=== PATIENT | male | born 1970 | race Caucasian/White ===

== ENCOUNTER 2018-06-19 07:51 | Inpatient (IN) | payer MEDICAID, OTHER ==
[2018-06-19 10:16] LABS: AADO2 Venous 64.5 mmHg; MODE ROOM AIR; MetHgb Venous 0.4 %; Sample Type Blood venous; Site OTHER; Venous COHb 0.1 %; Venous Fraction OxyHgb 70.7 %; Venous Oxygen Sat 71.1 mmHG (55.0-75.0); Venous Total Hemglobin 11.1 g/dl
[2018-06-19 10:22] LABS: ADD MAN DIFF? NO
[2018-06-19] MEDS: SOD CHLORIDE 0.9% 750 ML IV (10:24)
[2018-06-19 10:29] LABS: ABNORMAL IP MESSAGE 1; BASOPHIL # 0.1 10^3/ul (0.0-0.1); BASOPHILS % 0.3 % (0.0-2.0); HEMATOCRIT 27.4 % (42.0-52.0); HEMOGLOBIN 9.8 g/dl (14.0-18.0); LYMPHOCYTES % 4.4 % (15.0-51.0); MEAN CORPUSCULAR HEMOGLOBIN 29.2 pg (29.0-33.0); MEAN CORPUSCULAR HGB CONC 35.8 g/dl (32.0-37.0); MEAN CORPUSCULAR VOLUME 81.5 fl (82.0-101.0); MEAN PLATELET VOLUME 9.8 fl (7.4-10.4); MONOCYTE # 1.3 10^3/ul (0.3-0.9); MONOCYTES % 5.8 % (0.0-11.0); NEUTROPHIL # 20.5 10^3/ul (1.6-7.5); NEUTROPHILS % 88.8 % (39.0-77.0); PLATELET COUNT 266 10^3/UL (140-415); POSITIVE DIFF @See below; RED BLOOD COUNT 3.36 10^6/ul (4.70-6.10); RED CELL DISTRIBUTION WIDTH 12.5 % (11.5-14.5)
[2018-06-19 10:49] LABS: ANION GAP 21 (5-13); BLOOD UREA NITROGEN 63 mg/dl (7-20); CALCIUM 8.4 mg/dl (8.4-10.2); CARBON DIOXIDE 17 mmol/L (21-31); CHLORIDE 79 mmol/L (97-110); CREATININE 3.78 mg/dl (0.61-1.24); Estimated GFR 17 mL/min (>60); MAGNESIUM 2.4 mg/dl (1.7-2.5); PHOSPHORUS 5.4 mg/dl (2.5-4.9); POTASSIUM 4.2 mmol/L (3.5-5.1)
[2018-06-19 10:53] LABS: ANISOCYTOSIS 1+ (0-0); BAND NEUTROPHILS #M 4.6 10^3/ul (0.0-0.6); BAND NEUTROPHILS % (M) 20 % (0-4); LYMPHOCYTES #M 1.1 10^3/ul (0.8-2.9); LYMPHOCYTES % (M) 5 % (15-51); MONOCYTE #M 1.3 10^3/ul (0.3-0.9); MONOCYTES % (M) 6 % (0-11); PLATELET ESTIMATE NORMAL; POIKILOCYTOSIS 1+ (0-0); POLYCHROMASIA 1+ (0-0); SEG NEUT #M 16.9 10^3/ul (1.6-7.5); SEGMENTED NEUTROPHILS (M) % 69 % (39-77); SMUDGE%M 2 % (0-0); SODIUM 117 mmol/L (135-144)
[2018-06-19 10:59] LABS: ADD UMIC YES; UR ASCORBIC ACID NEGATIVE (NEGATIVE); UR BACTERIA FEW /HPF (NONE SEEN); UR BILIRUBIN (Dip) NEGATIVE (NEGATIVE); UR BLOOD (Dip) 3+ mg/dL (NEGATIVE); UR BUDDING YEAST FEW /HPF (NONE SEEN); UR CLARITY SLIGHTLY CLOUDY (CLEAR); UR COLOR YELLOW (YELLOW); UR GLUCOSE (Dip) 3+ mg/dL (NEGATIVE); UR KETONES (Dip) NEGATIVE (NEGATIVE); UR LEUKOCYTE ESTERASE (Dip) TRACE Leu/ul (NEGATIVE); UR NITRITE (Dip) NEGATIVE (NEGATIVE); UR RBC 10 /HPF (0-5); UR SPECIFIC GRAVITY (Dip) 1.014 (1.003-1.030); UR TOTAL PROTEIN (Dip) NEGATIVE (NEGATIVE); UR UROBILINOGEN (Dip) NEGATIVE (NEGATIVE); UR WBC 31 /HPF (0-5)
[2018-06-19 11:00] LABS: TROPONIN-I < 0.012 ng/ml (0.000-0.120)
[2018-06-19 11:02] LABS: GLUCOSE 675 mg/dl (70-220)
[2018-06-19] MEDS: SODIUM CHLORIDE 0.9% 1L BAG IV* (12:03)
[2018-06-19] MEDS: INSULIN REGULAR, HUMAN 100 UNIT/1 ML 3ML VIAL SC ×2 (12:03→18:42)
[2018-06-19] MEDS: CEFTRIAXONE 1 GM/50 ML (PMX) 50 ML IVPB (12:05)
[2018-06-19] MEDS ORDERED: NACL 0.9% 3 ML SYG IV (13:00)
[2018-06-19] MEDS: SOD CHLORIDE 0.9% 1,000 ML IV ×4 (13:15→21:58)
[2018-06-19 13:27] LABS: ALBUMIN 3.5 g/dl (3.3-4.9); ANION GAP 21 (5-13); BLOOD UREA NITROGEN 64 mg/dl (7-20); CALCIUM 8.2 mg/dl (8.4-10.2); CARBON DIOXIDE 18 mmol/L (21-31); CHLORIDE 79 mmol/L (97-110); CREATININE 3.59 mg/dl (0.61-1.24); PHOSPHORUS 5.3 mg/dl (2.5-4.9); POTASSIUM 4.3 mmol/L (3.5-5.1)
[2018-06-19 13:37] LABS: SODIUM 118 mmol/L (135-144)
[2018-06-19 13:46] LABS: GLUCOSE 666 mg/dl (70-220)
[2018-06-19] MEDS: FAMOTIDINE 20 MG TAB PO (14:34)
[2018-06-19] MEDS ORDERED: GLUCAGON 1 MG INJ IM (18:00)
[2018-06-19] MEDS ORDERED: DEXTROSE 50% 50 ML SYRINGE IV ×2 (18:00)
[2018-06-19] MEDS ORDERED: GLUCOSE GEL 15 GRAM TUBE BUCCAL (18:00)
[2018-06-19] MEDS ORDERED: GLUCOSE GEL 15 GRAM TUBE PO ×2 (18:00)
[2018-06-19 18:27] LABS: LACTIC ACID 1.5 mmol/L (0.5-2.0)
[2018-06-19] MEDS ORDERED: PENDING SANTYL ORDER FOR WOUND CARE XX (18:30)
[2018-06-19] MEDS: ACETAMINOPHEN 325 MG TAB PO (18:37)
[2018-06-19] MEDS: INSULIN ASPART [NOVOLOG] 3 ML PEN SC ×2 (18:42→22:09)
[2018-06-19] MEDS: ALBUMIN HUMAN 25% 100 ML IV ×2 (20:22→21:37)
[2018-06-19] MEDS ORDERED: NORepinephrine 8MG/250 ML (PMX 250 ML IV (21:00)
[2018-06-19] MEDS: CEFEPIME 1GM/50 ML (PMX) 50 ML IV (21:26)
[2018-06-19] MEDS: HEPARIN 5,000 UNIT/1 ML VIAL SC (21:56)
[2018-06-19 22:10] LABS: LACTIC ACID 1.2 mmol/L (0.5-2.0)
[2018-06-19] MEDS: INSULIN GLARGINE [LANTus] (100 UNITS/ML) SYG SC (22:10)
[2018-06-19] MEDS: NORepinephrine 8MG/250 ML (PMX 250 ML IV (23:15)
[2018-06-20 06:02] LABS: ABNORMAL IP MESSAGE 1; HEMATOCRIT 27.7 % (42.0-52.0); HEMOGLOBIN 9.5 g/dl (14.0-18.0); MEAN CORPUSCULAR HEMOGLOBIN 28.6 pg (29.0-33.0); MEAN CORPUSCULAR HGB CONC 34.3 g/dl (32.0-37.0); MEAN CORPUSCULAR VOLUME 83.4 fl (82.0-101.0); PLATELET COUNT 278 10^3/UL (140-415); POSITIVE DIFF @See below; RED BLOOD COUNT 3.32 10^6/ul (4.70-6.10); RED CELL DISTRIBUTION WIDTH 12.9 % (11.5-14.5)
[2018-06-20 06:02] LABS: WHITE BLOOD COUNT 27.2 10^3/ul (4.8-10.8)
[2018-06-20 06:14] LABS: ADD MAN DIFF? YES
[2018-06-20 06:20] LABS: IRON 12 ug/dl (35-150)
[2018-06-20 06:27] LABS: ALANINE AMINOTRANSFERASE 19 IU/L (13-69); ALBUMIN 3.4 g/dl (3.3-4.9); ALBUMIN/GLOBULIN RATIO 0.97; ALKALINE PHOSPHATASE 256 IU/L (42-121); ANION GAP 19 (5-13); ASPARTATE AMINO TRANSFERASE 42 IU/L (15-46); BILIRUBIN,INDIRECT 0.1 mg/dl (0-1.1); BILIRUBIN,TOTAL 0.1 mg/dl (0.2-1.3); BLOOD UREA NITROGEN 46 mg/dl (7-20); CALCIUM 7.8 mg/dl (8.4-10.2); CARBON DIOXIDE 13 mmol/L (21-31); CHLORIDE 103 mmol/L (97-110); CREATININE 2.69 mg/dl (0.61-1.24); Estimated GFR 26 mL/min (>60); GLUCOSE 304 mg/dl (70-220); MAGNESIUM 2.3 mg/dl (1.7-2.5); POTASSIUM 3.3 mmol/L (3.5-5.1); SODIUM 135 mmol/L (135-144); TOTAL PROTEIN 6.9 g/dl (6.1-8.1)
[2018-06-20 06:29] LABS: % IRON SATURATION 5 % SAT (22-52); TOTAL IRON BINDING CAPACITY 246 ug/dl (241-421)
[2018-06-20] MEDS: SOD CHLORIDE 0.9% 1,000 ML IV ×2 (06:41→20:07)
[2018-06-20] MEDS ORDERED: DEXTROSE 50% 50 ML SYRINGE IV ×2 (07:00)
[2018-06-20] MEDS: ACCU-CHEK XX ×17 (07:00→23:14)
[2018-06-20 08:20] LABS: BAND NEUTROPHILS #M 2.4 10^3/ul (0.0-0.6); BAND NEUTROPHILS % (M) 9 % (0-4); BURR CELLS 1+ (0-0); LYMPHOCYTES #M 1.6 10^3/ul (0.8-2.9); LYMPHOCYTES % (M) 6 % (15-51); MONOCYTE #M 1.6 10^3/ul (0.3-0.9); MONOCYTES % (M) 6 % (0-11); PLATELET ESTIMATE NORMAL; POIKILOCYTOSIS 1+ (0-0); SEG NEUT #M 22.1 10^3/ul (1.6-7.5); SEGMENTED NEUTROPHILS (M) % 79 % (39-77); SMUDGE%M 3 % (0-0)
[2018-06-20] MEDS ORDERED: POTASSIUM CHLORIDE 100 ML IVPB (09:00)
[2018-06-20] MEDS: FAMOTIDINE 20 MG TAB PO (09:06)
[2018-06-20] MEDS: ONDANSETRON 4 MG INJ IV (09:06)
[2018-06-20] MEDS: POTASSIUM CHLORIDE 100 ML IVPB ×2 (09:10→13:03)
[2018-06-20] MEDS: HEPARIN 5,000 UNIT/1 ML VIAL SC ×2 (09:13→20:21)
[2018-06-20] MEDS: INSULIN HUMAN REGULAR 100 UNIT in SOD CHLORIDE 0.9% 99 ML IV (09:17)
[2018-06-20] MEDS: NYSTATIN 15 GM OINT TOP ×3 (10:18→20:07)
[2018-06-20] MEDS: SOD FERRIC GLUC COMPLX 125 MG in SOD CHLORIDE 0.9% 100 ML IVPB (13:04)
[2018-06-20] MEDS: LIDOCAINE 1% (MPF) 5 ML VIAL SC (14:44)
[2018-06-20] MEDS: CEFEPIME 1GM/50 ML (PMX) 50 ML IV (20:06)
[2018-06-21] MEDS: ACCU-CHEK XX ×17 (01:17→15:34)
[2018-06-21 04:48] LABS: ADD MAN DIFF? NO
[2018-06-21 04:52] LABS: WHITE BLOOD COUNT 17.4 10^3/ul (4.8-10.8)
[2018-06-21 04:52] LABS: ABNORMAL IP MESSAGE 1; BASOPHIL # 0.1 10^3/ul (0.0-0.1); BASOPHILS % 0.3 % (0.0-2.0); EOSINOPHILS % 0.2 % (0.0-7.0); HEMATOCRIT 21.3 % (42.0-52.0); HEMOGLOBIN 7.5 g/dl (14.0-18.0); LYMPHOCYTES # 1.1 10^3/ul (0.8-2.9); LYMPHOCYTES % 6.2 % (15.0-51.0); MEAN CORPUSCULAR HEMOGLOBIN 29.1 pg (29.0-33.0); MEAN CORPUSCULAR HGB CONC 35.2 g/dl (32.0-37.0); MEAN CORPUSCULAR VOLUME 82.6 fl (82.0-101.0); MEAN PLATELET VOLUME 10.1 fl (7.4-10.4); MONOCYTE # 1.6 10^3/ul (0.3-0.9); MONOCYTES % 9.3 % (0.0-11.0); NEUTROPHIL # 14.5 10^3/ul (1.6-7.5); PLATELET COUNT 240 10^3/UL (140-415); POSITIVE DIFF @See below; RED BLOOD COUNT 2.58 10^6/ul (4.70-6.10); RED CELL DISTRIBUTION WIDTH 13.3 % (11.5-14.5)
[2018-06-21 05:18] LABS: ALANINE AMINOTRANSFERASE 33 IU/L (13-69); ALBUMIN 2.9 g/dl (3.3-4.9); ALBUMIN/GLOBULIN RATIO 0.87; ALKALINE PHOSPHATASE 449 IU/L (42-121); ANION GAP 11 (5-13); ASPARTATE AMINO TRANSFERASE 55 IU/L (15-46); BILIRUBIN,INDIRECT 0.2 mg/dl (0-1.1); BILIRUBIN,TOTAL 0.2 mg/dl (0.2-1.3); BLOOD UREA NITROGEN 29 mg/dl (7-20); CALCIUM 7.9 mg/dl (8.4-10.2); CARBON DIOXIDE 18 mmol/L (21-31); CHLORIDE 108 mmol/L (97-110); CREATININE 1.76 mg/dl (0.61-1.24); Estimated GFR 42 mL/min (>60); GLUCOSE 112 mg/dl (70-220); MAGNESIUM 2.3 mg/dl (1.7-2.5); SODIUM 137 mmol/L (135-144); TOTAL PROTEIN 6.2 g/dl (6.1-8.1)
[2018-06-21] MEDS: SOD CHLORIDE 0.9% 1,000 ML IV ×2 (06:43→18:32)
[2018-06-21] MEDS: NYSTATIN 15 GM OINT TOP ×3 (08:16→21:07)
[2018-06-21] MEDS: FAMOTIDINE 20 MG TAB PO (08:16)
[2018-06-21] MEDS: HEPARIN 5,000 UNIT/1 ML VIAL SC ×2 (08:20→21:06)
[2018-06-21] MEDS: POTASSIUM CHLORIDE 100 ML IVPB ×2 (09:39→11:26)
[2018-06-21] MEDS: POTASSIUM CHLORIDE (SR) 20 MEQ TAB PO (09:39)
[2018-06-21] MEDS: DICYCLOMINE 10 MG CAP PO (09:48)
[2018-06-21] MEDS: LOPERAMIDE 2 MG CAP PO (09:48)
[2018-06-21] MEDS: INSULIN GLARGINE [LANTus] (100 UNITS/ML) SYG SC (11:30)
[2018-06-21] MEDS: LACTOBACILLUS RHAMNOSUS CAP PO ×2 (11:30→17:21)
[2018-06-21] MEDS: INSULIN ASPART [NOVOLOG] 3 ML PEN SC ×3 (11:30→21:00)
[2018-06-21 13:17] LABS: HEMATOCRIT 23.2 % (42.0-52.0); HEMOGLOBIN 8.1 g/dl (14.0-18.0)
[2018-06-21] MEDS: SOD FERRIC GLUC COMPLX 125 MG in SOD CHLORIDE 0.9% 100 ML IVPB (13:42)
[2018-06-21] MEDS ORDERED: NYSTATIN 15 GM CR TOP (21:00)
[2018-06-21] MEDS: CEFEPIME 1GM/50 ML (PMX) 50 ML IV ×2 (21:00→23:44)
[2018-06-22 05:37] LABS: ADD MAN DIFF? NO
[2018-06-22 05:49] LABS: ABNORMAL IP MESSAGE 1; BASOPHIL # 0.1 10^3/ul (0.0-0.1); BASOPHILS % 0.4 % (0.0-2.0); EOSINOPHILS # 0.1 10^3/ul (0.0-0.5); EOSINOPHILS % 1.2 % (0.0-7.0); HEMATOCRIT 23.6 % (42.0-52.0); HEMOGLOBIN 8.2 g/dl (14.0-18.0); LYMPHOCYTES # 1.3 10^3/ul (0.8-2.9); LYMPHOCYTES % 10.6 % (15.0-51.0); MEAN CORPUSCULAR HEMOGLOBIN 28.6 pg (29.0-33.0); MEAN CORPUSCULAR HGB CONC 34.7 g/dl (32.0-37.0); MEAN CORPUSCULAR VOLUME 82.2 fl (82.0-101.0); MEAN PLATELET VOLUME 9.8 fl (7.4-10.4); MONOCYTE # 1.7 10^3/ul (0.3-0.9); NEUTROPHIL # 8.7 10^3/ul (1.6-7.5); NEUTROPHILS % 72.7 % (39.0-77.0); PLATELET COUNT 278 10^3/UL (140-415); POSITIVE DIFF @See below; RED BLOOD COUNT 2.87 10^6/ul (4.70-6.10); RED CELL DISTRIBUTION WIDTH 13.9 % (11.5-14.5)
[2018-06-22 05:49] LABS: WHITE BLOOD COUNT 11.9 10^3/ul (4.8-10.8)
[2018-06-22] MEDS: SOD CHLORIDE 0.9% 1,000 ML IV ×2 (06:10→13:46)
[2018-06-22 06:24] LABS: MAGNESIUM 2.1 mg/dl (1.7-2.5)
[2018-06-22 07:18] LABS: ALANINE AMINOTRANSFERASE 30 IU/L (13-69); ALBUMIN 2.7 g/dl (3.3-4.9); ALBUMIN/GLOBULIN RATIO 0.87; ALKALINE PHOSPHATASE 462 IU/L (42-121); ANION GAP 8 (5-13); ASPARTATE AMINO TRANSFERASE 38 IU/L (15-46); BILIRUBIN,INDIRECT 0.3 mg/dl (0-1.1); BILIRUBIN,TOTAL 0.3 mg/dl (0.2-1.3); BLOOD UREA NITROGEN 20 mg/dl (7-20); CALCIUM 8.2 mg/dl (8.4-10.2); CARBON DIOXIDE 19 mmol/L (21-31); CHLORIDE 110 mmol/L (97-110); CREATININE 1.52 mg/dl (0.61-1.24); Estimated GFR 49 mL/min (>60); GLUCOSE 135 mg/dl (70-220); POTASSIUM 3.3 mmol/L (3.5-5.1); SODIUM 137 mmol/L (135-144); TOTAL PROTEIN 5.8 g/dl (6.1-8.1)
[2018-06-22] MEDS: INSULIN ASPART [NOVOLOG] 3 ML PEN SC ×4 (07:50→20:42)
[2018-06-22] MEDS: FAMOTIDINE 20 MG TAB PO (08:31)
[2018-06-22] MEDS: LACTOBACILLUS RHAMNOSUS CAP PO ×3 (08:31→17:35)
[2018-06-22] MEDS: FERROUS SULFATE (EC) 325 MG TAB PO (08:31)
[2018-06-22] MEDS: HEPARIN 5,000 UNIT/1 ML VIAL SC ×2 (08:31→20:41)
[2018-06-22] MEDS: NYSTATIN 15 GM OINT TOP ×3 (08:32→20:37)
[2018-06-22] MEDS: INSULIN GLARGINE [LANTus] (100 UNITS/ML) SYG SC (08:32)
[2018-06-22] MEDS: POTASSIUM CHLORIDE 20 MEQ POWDER FOR ORAL SOLN PO (11:08)
[2018-06-22] MEDS ORDERED: GLUCOSE GEL 15 GRAM TUBE PO ×2 (13:30)
[2018-06-22] MEDS ORDERED: DEXTROSE 50% 50 ML SYRINGE IV ×2 (13:30)
[2018-06-22] MEDS ORDERED: GLUCAGON 1 MG INJ IM (13:30)
[2018-06-22] MEDS ORDERED: GLUCOSE GEL 15 GRAM TUBE BUCCAL (13:30)
[2018-06-22] MEDS: SOD FERRIC GLUC COMPLX 125 MG in SOD CHLORIDE 0.9% 100 ML IVPB (13:46)
[2018-06-22] MEDS: CEFTRIAXONE 1 GM/50 ML (PMX) 50 ML IVPB (15:27)
[2018-06-22] MEDS: FLUCONAZOLE 200 MG TAB PO (17:35)
[2018-06-23] MEDS: SOD CHLORIDE 0.9% 1,000 ML IV (01:28)
[2018-06-23 05:14] LABS: ADD MAN DIFF? NO
[2018-06-23 05:15] LABS: BASOPHILS % 0.4 % (0.0-2.0); EOSINOPHILS # 0.3 10^3/ul (0.0-0.5); EOSINOPHILS % 2.5 % (0.0-7.0); HEMATOCRIT 21.2 % (42.0-52.0); HEMOGLOBIN 7.2 g/dl (14.0-18.0); LYMPHOCYTES # 1.2 10^3/ul (0.8-2.9); LYMPHOCYTES % 11.6 % (15.0-51.0); MEAN CORPUSCULAR HEMOGLOBIN 28.5 pg (29.0-33.0); MEAN CORPUSCULAR VOLUME 83.8 fl (82.0-101.0); MEAN PLATELET VOLUME 9.4 fl (7.4-10.4); MONOCYTE # 1.4 10^3/ul (0.3-0.9); MONOCYTES % 13.8 % (0.0-11.0); NEUTROPHILS % 70.4 % (39.0-77.0); PLATELET COUNT 273 10^3/UL (140-415); RED BLOOD COUNT 2.53 10^6/ul (4.70-6.10); RED CELL DISTRIBUTION WIDTH 14.7 % (11.5-14.5)
[2018-06-23 05:41] LABS: ALANINE AMINOTRANSFERASE 28 IU/L (13-69); ALBUMIN 2.4 g/dl (3.3-4.9); ALKALINE PHOSPHATASE 372 IU/L (42-121); ANION GAP 7 (5-13); ASPARTATE AMINO TRANSFERASE 22 IU/L (15-46); BILIRUBIN,INDIRECT 0.2 mg/dl (0-1.1); BILIRUBIN,TOTAL 0.2 mg/dl (0.2-1.3); BLOOD UREA NITROGEN 15 mg/dl (7-20); CALCIUM 7.2 mg/dl (8.4-10.2); CARBON DIOXIDE 18 mmol/L (21-31); CHLORIDE 113 mmol/L (97-110); CREATININE 1.09 mg/dl (0.61-1.24); Estimated GFR > 60 mL/min (>60); GLUCOSE 68 mg/dl (70-220); POTASSIUM 3.1 mmol/L (3.5-5.1); SODIUM 138 mmol/L (135-144); TOTAL PROTEIN 5.4 g/dl (6.1-8.1)
[2018-06-23 05:47] LABS: MAGNESIUM 1.6 mg/dl (1.7-2.5)
[2018-06-23] MEDS: INSULIN ASPART [NOVOLOG] 3 ML PEN SC ×4 (07:50→21:06)
[2018-06-23] MEDS: ACETAMINOPHEN 325 MG TAB PO (07:59)
[2018-06-23] MEDS: LACTOBACILLUS RHAMNOSUS CAP PO ×3 (07:59→18:23)
[2018-06-23] MEDS: FERROUS SULFATE (EC) 325 MG TAB PO (09:20)
[2018-06-23] MEDS: FAMOTIDINE 20 MG TAB PO (09:20)
[2018-06-23] MEDS: HEPARIN 5,000 UNIT/1 ML VIAL SC ×2 (09:23→21:07)
[2018-06-23] MEDS: NYSTATIN 15 GM OINT TOP ×3 (09:24→21:07)
[2018-06-23] MEDS: SOD FERRIC GLUC COMPLX 125 MG in SOD CHLORIDE 0.9% 100 ML IVPB (13:51)
[2018-06-23] MEDS ORDERED: LOPERAMIDE 2 MG CAP PO (15:00)
[2018-06-23] MEDS: POTASSIUM CHLORIDE 20 MEQ POWDER FOR ORAL SOLN PO (15:00)
[2018-06-23] MEDS: AMOXICILLIN 500 MG CAP PO ×2 (15:14→22:47)
[2018-06-23] MEDS: INSULIN GLARGINE [LANTus] (100 UNITS/ML) SYG SC (15:23)
[2018-06-23] MEDS: MAGNESIUM SULFATE 2 GM/50 ML 50 ML IVPB (15:40)
[2018-06-24 06:04] LABS: ADD MAN DIFF? NO
[2018-06-24 06:10] LABS: WHITE BLOOD COUNT 10.7 10^3/ul (4.8-10.8)
[2018-06-24 06:10] LABS: BASOPHILS % 0.4 % (0.0-2.0); EOSINOPHILS # 0.4 10^3/ul (0.0-0.5); EOSINOPHILS % 3.4 % (0.0-7.0); HEMATOCRIT 25.5 % (42.0-52.0); HEMOGLOBIN 8.5 g/dl (14.0-18.0); LYMPHOCYTES # 1.1 10^3/ul (0.8-2.9); LYMPHOCYTES % 10.4 % (15.0-51.0); MEAN CORPUSCULAR HEMOGLOBIN 28.2 pg (29.0-33.0); MEAN CORPUSCULAR HGB CONC 33.3 g/dl (32.0-37.0); MEAN CORPUSCULAR VOLUME 84.7 fl (82.0-101.0); MEAN PLATELET VOLUME 9.7 fl (7.4-10.4); MONOCYTE # 1.1 10^3/ul (0.3-0.9); MONOCYTES % 10.3 % (0.0-11.0); NEUTROPHIL # 7.9 10^3/ul (1.6-7.5); NEUTROPHILS % 73.7 % (39.0-77.0); PLATELET COUNT 423 10^3/UL (140-415); RED BLOOD COUNT 3.01 10^6/ul (4.70-6.10); RED CELL DISTRIBUTION WIDTH 14.6 % (11.5-14.5)
[2018-06-24] MEDS: AMOXICILLIN 500 MG CAP PO ×3 (06:16→21:27)
[2018-06-24 06:42] LABS: ANION GAP 9 (5-13); BLOOD UREA NITROGEN 15 mg/dl (7-20); CALCIUM 8.6 mg/dl (8.4-10.2); CARBON DIOXIDE 22 mmol/L (21-31); CHLORIDE 107 mmol/L (97-110); CREATININE 1.25 mg/dl (0.61-1.24); Estimated GFR > 60 mL/min (>60); GLUCOSE 265 mg/dl (70-220); MAGNESIUM 2.2 mg/dl (1.7-2.5); PHOSPHORUS 2.4 mg/dl (2.5-4.9); POTASSIUM 4.1 mmol/L (3.5-5.1); SODIUM 138 mmol/L (135-144)
[2018-06-24] MEDS ORDERED: INSULIN GLARGINE [LANTus] (100 UNITS/ML) SYG SC (08:00)
[2018-06-24] MEDS: INSULIN ASPART [NOVOLOG] 3 ML PEN SC ×4 (09:12→21:20)
[2018-06-24] MEDS: HEPARIN 5,000 UNIT/1 ML VIAL SC ×2 (09:13→21:26)
[2018-06-24] MEDS: FAMOTIDINE 20 MG TAB PO (09:21)
[2018-06-24] MEDS: LACTOBACILLUS RHAMNOSUS CAP PO ×3 (09:21→17:54)
[2018-06-24] MEDS: FERROUS SULFATE (EC) 325 MG TAB PO (09:21)
[2018-06-24] MEDS: NYSTATIN 15 GM OINT TOP ×3 (09:22→21:28)
[2018-06-24] MEDS: INSULIN GLARGINE [LANTus] (100 UNITS/ML) SYG SC (09:40)
[2018-06-24] MEDS: SOD CHLORIDE 0.9% 1,000 ML IV (11:00)
[2018-06-24] MEDS: SOD FERRIC GLUC COMPLX 125 MG in SOD CHLORIDE 0.9% 100 ML IVPB (13:13)
[2018-06-25] MEDS: SOD CHLORIDE 0.9% 1,000 ML IV (00:35)
[2018-06-25 05:40] LABS: ADD MAN DIFF? NO
[2018-06-25 05:47] LABS: WHITE BLOOD COUNT 11.7 10^3/ul (4.8-10.8)
[2018-06-25 05:47] LABS: BASOPHIL # 0.1 10^3/ul (0.0-0.1); BASOPHILS % 0.5 % (0.0-2.0); EOSINOPHILS # 0.4 10^3/ul (0.0-0.5); EOSINOPHILS % 3.4 % (0.0-7.0); HEMATOCRIT 24.8 % (42.0-52.0); HEMOGLOBIN 8.2 g/dl (14.0-18.0); LYMPHOCYTES # 1.3 10^3/ul (0.8-2.9); LYMPHOCYTES % 11.4 % (15.0-51.0); MEAN CORPUSCULAR HEMOGLOBIN 28.6 pg (29.0-33.0); MEAN CORPUSCULAR HGB CONC 33.1 g/dl (32.0-37.0); MEAN CORPUSCULAR VOLUME 86.4 fl (82.0-101.0); MEAN PLATELET VOLUME 9.5 fl (7.4-10.4); MONOCYTE # 1.1 10^3/ul (0.3-0.9); MONOCYTES % 9.7 % (0.0-11.0); NEUTROPHIL # 8.6 10^3/ul (1.6-7.5); NEUTROPHILS % 73.4 % (39.0-77.0); PLATELET COUNT 498 10^3/UL (140-415); RED BLOOD COUNT 2.87 10^6/ul (4.70-6.10); RED CELL DISTRIBUTION WIDTH 14.2 % (11.5-14.5)
[2018-06-25] MEDS: AMOXICILLIN 500 MG CAP PO ×2 (06:06→13:59)
[2018-06-25 06:12] LABS: ANION GAP 8 (5-13); BLOOD UREA NITROGEN 15 mg/dl (7-20); CALCIUM 8.6 mg/dl (8.4-10.2); CARBON DIOXIDE 24 mmol/L (21-31); CHLORIDE 105 mmol/L (97-110); CREATININE 1.14 mg/dl (0.61-1.24); Estimated GFR > 60 mL/min (>60); GLUCOSE 164 mg/dl (70-220); MAGNESIUM 1.9 mg/dl (1.7-2.5); PHOSPHORUS 3.2 mg/dl (2.5-4.9); POTASSIUM 3.6 mmol/L (3.5-5.1); SODIUM 137 mmol/L (135-144)
[2018-06-25] MEDS: INSULIN ASPART [NOVOLOG] 3 ML PEN SC ×2 (09:02→13:16)
[2018-06-25] MEDS: FAMOTIDINE 20 MG TAB PO (09:03)
[2018-06-25] MEDS: LACTOBACILLUS RHAMNOSUS CAP PO ×2 (09:03→13:14)
[2018-06-25] MEDS: FERROUS SULFATE (EC) 325 MG TAB PO (09:03)
[2018-06-25] MEDS: INSULIN GLARGINE [LANTus] (100 UNITS/ML) SYG SC (09:08)
[2018-06-25] MEDS: HEPARIN 5,000 UNIT/1 ML VIAL SC (09:09)
[2018-06-25] MEDS: NYSTATIN 15 GM OINT TOP ×2 (10:28→13:18)
== END 2018-06-25 16:10 | disposition home or self-care (01) | DRG 871 ==
LOC: MS1 06-21 18:28 → E/R 07:51 → TEL 11:56 → ICU 20:51
PROC: 02HV33Z Insertion of Infusion Device into Superior Vena Cava, Percutaneous Approach (ICD-10-PCS; principal; 2018-06-20)
DX: A41.9 Sepsis, unspecified organism (principal); R65.21 Severe sepsis with septic shock; N17.9 Acute kidney failure, unspecified; N13.30 Unspecified hydronephrosis; E87.1 Hypo-osmolality and hyponatremia; N39.0 Urinary tract infection, site not specified; E11.65 Type 2 diabetes mellitus with hyperglycemia; N31.8 Other neuromuscular dysfunction of bladder; E11.40 Type 2 diabetes mellitus with diabetic neuropathy, unspecified; K52.9 Noninfective gastroenteritis and colitis, unspecified; R11.2 Nausea with vomiting, unspecified; D50.9 Iron deficiency anemia, unspecified; R53.1 Weakness; N31.9 Neuromuscular dysfunction of bladder, unspecified; N39.490 Overflow incontinence
CPT/HCPCS: 36415; 36569; 70450; 71045; 74176; 76937; 80048; 80053; 80069; 81001; 82803; 82962; 83036; 83540; 83605; 83735; 84100; 84484; 85014; 85018; 85025; 87040; 87081; 87086; 93005; 96360; 96361; 97110; 97116; 97161; 97167; 97530; 97535; 99285-25